=== PATIENT | female | born 1995 | race Asian ===

== ENCOUNTER 2017-04-25 14:32 | Emergency (ER) | payer MEDICAID, OTHER | END 2017-04-25 15:00 | disposition left against medical advice (07) | LOC: ER 14:32 | DX: Z53.21 Procedure and treatment not carried out due to patient leaving prior to being seen by health care provider (principal) ==

== ENCOUNTER 2017-10-25 13:34 | Emergency (ER) | payer OTHER ==
[~2017-10-25] VITALS: Ht 157.5 cm; Wt 57.0 kg
[2017-10-25 14:02] VITALS: BP 127/73
== END 2017-10-25 18:13 | disposition left against medical advice (07) ==
LOC: ER 14:02
DX: R05 Cough (principal); Z53.21 Procedure and treatment not carried out due to patient leaving prior to being seen by health care provider

== ENCOUNTER 2017-11-20 18:46 | Emergency (ER) | payer MEDICAID, OTHER ==
[~2017-11-20] VITALS: Ht 157.5 cm; Wt 59.0 kg
[2017-11-20 18:55] VITALS: BP 126/71
== END 2017-11-20 22:00 | disposition left against medical advice (07) ==
LOC: ER 20:56
DX: O20.9 Hemorrhage in early pregnancy, unspecified (principal); Z3A.01 Less than 8 weeks gestation of pregnancy; Z53.21 Procedure and treatment not carried out due to patient leaving prior to being seen by health care provider

== ENCOUNTER 2019-12-26 13:25 | Emergency (ER) | payer MEDICAID ==
[~2019-12-26] VITALS: Ht 157.5 cm; Wt 62.0 kg
[2019-12-26 14:10] VITALS: BP 115/68
== END 2019-12-26 14:42 | disposition home or self-care (01) ==
LOC: ER 13:25
DX: B34.9 Viral infection, unspecified (principal); Z98.890 Other specified postprocedural states
CPT/HCPCS: 99282